=== PATIENT | male | born 1975 | race African-American/Black ===

== ENCOUNTER 2021-03-18 00:49 | Observation (INO) | payer OTHER ==
[~2021-03-18] VITALS: Ht 165.1 cm; Wt 106.2 kg
[2021-03-18] VITALS (10 sets, daily range): BP systolic 119–160; BP diastolic 72–97; TEMP 97.1–99; Ht 165.1 cm; Wt 106.2 kg
[2021-03-18 02:41] LABS: PLATELET COUNT 459 K/uL (142-355)
[2021-03-18 02:47] LABS: POTASSIUM 3.6 mmol/L (3.6-5.2)
[2021-03-18 02:56] LABS: PARTIAL THROMBOPLASTIN TIME 26.1 SECONDS (24.5-33.6)
[2021-03-19] VITALS: BP 118/79; TEMP 97.8
[2021-03-19 04:00] VITALS: BP 116/70; TEMP 97.7
[2021-03-19 05:39] LABS: PLATELET COUNT 422 K/uL (142-355)
[2021-03-19 05:50] LABS: POTASSIUM 4.1 mmol/L (3.6-5.2)
[2021-03-19 08:00] VITALS: BP 111/86; TEMP 97.8
== END 2021-03-19 12:50 | disposition home or self-care (01) ==
LOC: ED 00:55 → MED/SURG 02:30
PROVIDERS: ADMIT Hospitalist; ATTEND Internal Medicine Endocrinology, Diabetes & Metabolism
DX: G45.8 Other transient cerebral ischemic attacks and related syndromes (principal); M10.9 Gout, unspecified; K21.9 Gastro-esophageal reflux disease without esophagitis; I10 Essential (primary) hypertension; R47.01 Aphasia; E66.8 Other obesity
CPT/HCPCS: 36415; 80048; 80053; 80061; 80320; 81000; 82550; 82948; 83036; 83880; 84484; 85027; 85610; 85730; 87635; 93005; 96372; 99220; 99284; A9576; G0378; J1650; J2405; U0003

== ENCOUNTER 2021-03-22 08:30 | Emergency (ER) | payer OTHER ==
[~2021-03-22] VITALS: Ht 165.1 cm; Wt 107.5 kg
[2021-03-22 08:36] VITALS: TEMP 98.5
[2021-03-22 09:19] LABS: PLATELET COUNT 449 K/uL (142-355)
[2021-03-22 11:50] VITALS: BP 150/92
== END 2021-03-22 11:50 | disposition home or self-care (01) ==
LOC: ED 08:30
PROVIDERS: Emergency Medicine Emergency Medical Services
DX: G45.9 Transient cerebral ischemic attack, unspecified (principal)
CPT/HCPCS: 80053; 85027; 96374; 96375; 99284; J2270; J2405; Q9963